=== PATIENT | male | born 1995 | race Asian ===

== ENCOUNTER → 2020-09-26 09:56 | Outpatient (CLI) | payer BC, SELFPAY ==
--- NOTE | 2020-09-26 10:04 | RAD_ITS ---
STUDY: X-RAY - LUMBAR SPINE REASON FOR EXAM: Male, 25 years old. BACK PAIN TECHNIQUE: 5 view(s) of the lumbar spine were obtained. COMPARISON: None FINDINGS: Normal lumbar lordosis. There is no substantial scoliosis. There is a normal alignment of the vertebrae. Normal vertebral bodies and endplates. Normal disc space heights. The soft tissue structures are unremarkable. RAD/L/S Spine Min 4 Views IMPRESSION: Normal x-ray examination of the lumbar spine. Electronically Signed: Sidney Calabrese MD at 8:42 EDT Tel , Service support ,
== END ==
PROVIDERS: PCP Family Medicine; Referring Provider Family Medicine; Visit Provider Family Medicine
DX: M54.9 Dorsalgia, unspecified (principal)
CPT/HCPCS: 72110

== ENCOUNTER 2020-10-09 08:40 | Outpatient (RCR) | payer BC, SELFPAY ==
--- NOTE | 2020-10-09 11:14 | HP.PTEVAL_ITS ---
Patient's Visit Information THEODORA VANN is a 25 year old M referred to Physical Therapy by Dr. Phi Gomes MD with a diagnosis of BACK PAIN. Date of Evaluation: 10/09/20 Physical Therapist: Dale Seo, PT, Cert MDT, OCS - Visit Plan Frequency: 1-2x /Week Duration: 4 Weeks Plan: PT INTERVETIONS MEREDITH EX'S,POSTURAL EX'S ,DLS AND LE FLEXABITY /PATIENT EDUCATION - Subjective This 25 y/o male presents to physical therapy with back pain. Patient pain in lumbar and progressively increase in left buttuck hamstring and calf in the past year. Patient symptoms insidious onset lumbar radiculopathy. Seen DR palomares MEDs ,prednisone, muscle relaxer. Patient had x-rays which was negative. Aggravating walking, bending, lifting . Alleviating factors rest and sitting/MEDS. C/O paresthesia left back. Coughing/sneezing+. Bowel/bladder -.No abnormal night pain. Patient symptoms affects ability to perform job demands and housework tasks. Patient is able to sleep at night. Symptoms pins/needles in ankle. Sharp pain back. Patient seen chiropractor in past didn't help. Patient reports has leg length discrepancy left side. SOCIAL: single. VOCATION: [employer] - Pain Left Pain Intensity (Out of 10): 7 Pain Intensity Range: 10 Comment: back Left Lower Extremity Pain Intensity (Out of 10): 4 Pain Intensity Range: 10 - Objective POSTURE: reduce lordosis ,slouched posture. NEURO: c/o paresthesia leg ,pins/needles foot, +ANR. GAIT: reciprocal pattern. LUMBAR ROM: flexion min/mod loss, extension WFL, slides side WFL. SYMMTRIES: left leg 1/4 shorter. MMT: QUAD 4-/5 with + ANR,HAMS 4/5,HIP FLEXION 4-/5,ANKLE 4/5 - Special Tests L/S Slump test left side: Positive L/S Slump test right side: Positive L/S Left Straight Leg Raise: Positive L/S Right Straight Leg Raise: Negative Lumbar Standing: Flexion - Mechanical Response: No effect Lumbar Standing: Flexion - Symptoms During Testing: Increases Lumbar Standing: Flexion - Symptoms After Testing: Worse Lumbar Standing: Extension - Mechanical Response: No effect Lumbar Standing: Extension - Symptoms During Testing: Decreases Lumbar Standing: Extension - Symptoms After Testing: Better Lumbar Standing: Right Side Glides - Mechanical Response: No effect Lumbar Standing: Right Side Rhodelia - Symptoms During Testing: No effect Lumbar Standing: Right Side Rhodelia - Symptoms After Testing: No effect Lumbar Standing: Left Side Rhodelia - Mechanical Response: No effect Lumbar Standing: Left Side Rhodelia - Symptoms During Testing: No effect Lumbar Standing: Left Side Rhodelia - Symptoms After Testing: No effect Lumbar Lying: Flexion - Mechanical Response: No effect Lumbar Lying: Flexion - Symptoms During Testing: Increases Lumbar Lying: Flexion - Symptoms After Testing: Worse Lumbar Lying: Extension - Mechanical Response: No effect Lumbar Lying: Extension - Symptoms During Testing: Decreases Lumbar Lying: Extension - Symptoms After Testing: Better - Goals Goal 1:: I with HEP Goal Time Frame: 4-6 Weeks Goal 2:: Improve posture/body mechanics for ADL'S Goal Time Frame: 4-6 Weeks Goal 3:: Patient to decrease lumbar pain with radicular symptoms my 70% or > to imprve function. Goal Time Frame: 4-6 Weeks Goal 4:: Patient to improve lumbar ROM for function of recovery Goal Time Frame: 4-6 Weeks Goal 5:: Patient to improve back owestry score by 5 points or > to improve QOL and function Goal Time Frame: 4-6 Weeks Goal 6:: Resolve ANR and SLR to improve function. Goal Time Frame: 4-6 Weeks - Rehabilitation Potential Physical Therapy Diagnosis: This patient has lumbar radiculopathy with possible disc involvement with derangement below with + SLR ,ANR, slump test worse with flexion better with extension and posture correction thus will benefit from skilled PT Rehabilitation Potential: Good - Anticipated Interventions Patient/Client Instruction: Educate patient on: Condition, Plan of Care For the Purpose of:: To decrease pain, To increase ROM, To improve muscle performance and motor function, To improve ability to perform ADL's, To increase tolerance to activity/condition/position, To improve performance and independence with ADL's, To improve ability of physical actions for home/community/work/leisure, To improve health of tissue, To decrease soft tissue restriction, To increase flexibility/ROM, To reduce risk of recurrence, To improve ability to perform tasks related to life management Therapeutic Exercise to Include: Strength training, Postural training, Flexibilty training, Active ROM, Meredith Exercises For the Purpose of:: To decrease pain, To increase ROM, To improve muscle performance and motor function, To increase tolerance to activity/condition/position, To improve ability of physical actions for home/community/work/leisure, To improve health of tissue, To decrease soft tissue restriction, To increase flexibility/ROM, To reduce risk of recurrence, To improve ability to perform tasks related to life management Thank you for the opportunity to evaluate your patient. For Medicare and Medicare HMO plans, please review the plan of care and approve it. It will need to be FAXED BACK to us at [phone] for Medicare purposes. For Medicare only, by signing this I certify the plan of care. Please let me know if there are questions or concerns regarding this plan of care. Physician Signature: Date:
--- NOTE | 2021-01-02 08:19 | HP.PTDCNRP_ITS ---
THEODORA VANN was seen in my office for initial evaluation on 10/09/20. The following Plan of Care was established for this patient: Initial Frequency: 1-2x /Week Initial Duration: 4 Weeks Patient/Client Instruction: Educate patient on: Condition, Plan of Care For the Purpose of:: To decrease pain, To increase ROM, To improve muscle performance and motor function, To improve ability to perform ADL's, To increase tolerance to activity/condition/position, To improve performance and independence with ADL's, To improve ability of physical actions for home/community/work/leisure, To improve health of tissue, To decrease soft tissue restriction, To increase flexibility/ROM, To reduce risk of recurrence, To improve ability to perform tasks related to life management Therapeutic Exercise to Include: Strength training, Postural training, Flexibilty training, Active ROM, Rohan Exercises For the Purpose of:: To decrease pain, To increase ROM, To improve muscle performance and motor function, To increase tolerance to ac tivity/condition/position, To improve ability of physical actions for home/community/work/leisure, To improve health of tissue, To decrease soft tissue restriction, To increase flexibility/ROM, To reduce risk of recurrence, To improve ability to perform tasks related to life management This patient was last seen in our office . Pertinent comments regarding their Physical therapy will appear below: This patient was seen for PT evaluation for HEP. At this point I will be discontinuing this patient from physical therapy. I would be happy to see this patient again in the future if found appropriate by the physician. Thank you! Dale Seo, PT, Cert MDT, OCS Balance/Gait/Functional tests - Balance/Special Test Scores Oswestry Low Back Score: 23
== END 2020-10-09 19:00 | disposition home or self-care (01) ==
LOC: PT 08:40
PROVIDERS: PCP Family Medicine; Referring Provider Family Medicine; Visit Provider Family Medicine
DX: M54.9 Dorsalgia, unspecified (principal)
CPT/HCPCS: 97110; 97161